=== PATIENT | male | born 1960 | race Caucasian/White ===

== ENCOUNTER 2021-11-06 13:05 | Outpatient (CLI) | payer OTHER | END 2021-11-06 13:06 | disposition home or self-care (01) | LOC: CSHULT 13:05 | PROVIDERS: ATTEND Urology | DX: N43.40 Spermatocele of epididymis, unspecified (principal); N50.3 Cyst of epididymis | CPT/HCPCS: 76870; 93976 ==

== ENCOUNTER 2022-08-14 14:09 | Outpatient (CLI) | payer BC | END 2022-08-14 14:10 | disposition home or self-care (01) | LOC: CSHULT 14:09 | PROVIDERS: ATTEND Urology | DX: N40.1 Benign prostatic hyperplasia with lower urinary tract symptoms (principal); N21.0 Calculus in bladder; N28.1 Cyst of kidney, acquired | CPT/HCPCS: 76770 ==

== ENCOUNTER 2024-04-27 12:09 | Outpatient (CLI) | payer BC | END 2024-04-27 12:10 | disposition home or self-care (01) | LOC: CSHULT 12:09 | PROVIDERS: ATTEND Internal Medicine | DX: R01.1 Cardiac murmur, unspecified (principal); I44.4 Left anterior fascicular block | CPT/HCPCS: 93306 ==